=== PATIENT | female | born 1965 | race Caucasian/White ===

== ENCOUNTER 2017-12-26 09:00 | Outpatient (CLI) | payer OTHER, SELFPAY ==
[2017-12-26 18:10] LABS: Hemoglobin A1C 7.5 % (4.5-6.2)
== END 2017-12-26 09:01 ==
PROVIDERS: PCP Family Medicine; Visit Provider Family Medicine
DX: E11.9 Type 2 diabetes mellitus without complications (principal)
CPT/HCPCS: 83036

== ENCOUNTER 2018-03-29 07:01 | Outpatient (CLI) | payer OTHER, SELFPAY ==
[2018-03-29 08:03] LABS: ALT 32 U/L (12-78); AST 16 U/L (15-37); Albumin 3.6 g/dL (3.4-5.0); Alkaline Phosphatase 90 U/L (46-116); Anion Gap 10.7 mmol/L (3-11); BUN 14 mg/dL (7-18); Bilirubin, Total 0.4 mg/dL (0.2-1.0); CO2 27.3 mmol/L (21.0-32.0); CREATININE 0.71 mg/dL (0.55-1.02); Calcium 9.3 mg/dL (8.5-10.1); Chloride 101 mmol/L (98-107); Glucose 169 mg/dL (70-100); Potassium 4.5 mmol/L (3.5-5.1); Sodium 139 mmol/L (136-145); Total Protein 7.2 g/dL (6.4-8.2)
== END 2018-03-29 07:21 ==
PROVIDERS: PCP Family Medicine; Visit Provider Family Medicine
DX: E11.9 Type 2 diabetes mellitus without complications (principal); I10 Essential (primary) hypertension
CPT/HCPCS: 36415; 80053; 83036

== ENCOUNTER 2018-07-21 06:21 | Outpatient (CLI) | payer OTHER, SELFPAY ==
--- NOTE | 2018-07-21 07:30 | DI.MAMMO_ITS ---
SYMPTOM/DIAGNOSIS: SCREENING, Z12.31 MAMMOGRAMS: Mammograms were interpreted according to the usual protocol including computer analysis with CAD system, tomosynthesis and C view imaging. Comparison is made with exams from [id number]. The breasts are composed of fatty density tissue. Breast density, Category A. No suspicious masses or suspicious microcalcifications are seen. There has been no significant change. IMPRESSION: Category 1, negative mammogram. Yearly screening mammography is recommended. [facility] ASSESSMENT OF FINDINGS: Negative. Category 1. Patient will receive a letter notifying them of these results. BI-RAD category A. The breasts are almost entirely fatty.
== END 2018-07-21 06:41 ==
PROVIDERS: PCP Family Medicine; Visit Provider Family Medicine
CPT/HCPCS: 77063; 77067

== ENCOUNTER 2018-08-11 08:06 | Outpatient (CLI) | payer OTHER, SELFPAY ==
[2018-08-11 09:05] LABS: Hemoglobin A1C 7.3 % (4.5-6.2)
[2018-08-11 09:37] LABS: Cholesterol 125 mg/dL (50-200); HDL Cholesterol 43 mg/dL (40-60); LDL CHOLESTEROL 61 mg/dL (<100); Triglyceride 118 mg/dL (30-150)
[2018-08-11 09:51] LABS: COMMENT (LAB VIEW ONLY) 82.83 mg/dL; Microalb ug/mg Crea 21.9 ug/mg Cr
== END 2018-08-11 08:26 ==
PROVIDERS: PCP Family Medicine; Visit Provider Family Medicine
DX: E11.9 Type 2 diabetes mellitus without complications (principal)
CPT/HCPCS: 36415; 80061; 83721; 82043; 82570; 83036

== ENCOUNTER 2018-12-21 01:24 | Outpatient (CLI) | payer OTHER, SELFPAY ==
[2018-12-21 08:23] LABS: Anion Gap 12.6 mmol/L (3-11); BUN 18 mg/dL (7-18); CO2 25.4 mmol/L (21.0-32.0); CREATININE 0.76 mg/dL (0.55-1.02); Calcium 9.1 mg/dL (8.5-10.1); Chloride 101 mmol/L (98-107); Glucose 138 mg/dL (70-100); Potassium 4.7 mmol/L (3.5-5.1); Sodium 139 mmol/L (136-145)
== END 2018-12-21 01:44 ==
PROVIDERS: PCP Family Medicine; Visit Provider Family Medicine
DX: E11.9 Type 2 diabetes mellitus without complications (principal)
CPT/HCPCS: 36415; 80048

== ENCOUNTER 2019-04-01 11:27 | Outpatient (CLI) | payer OTHER, SELFPAY ==
[2019-04-01 12:29] LABS: Hemoglobin A1C 7.7 % (4.5-6.2)
== END 2019-04-01 11:47 ==
PROVIDERS: PCP Family Medicine; Visit Provider Family Medicine
DX: E11.9 Type 2 diabetes mellitus without complications (principal)
CPT/HCPCS: 36415; 83036

== ENCOUNTER 2019-10-18 00:40 | Outpatient (CLI) | payer OTHER, SELFPAY ==
--- NOTE | 2019-10-18 | DI.MAMMO_ITS ---
EXAM: MG MAMMO SCREENING CLINICAL HISTORY: SCREENING, Z12.39 TECHNIQUE: Mammograms were interpreted according to the usual protocol including computer analysis w [employer] CAD system, tomosynthesis and C-view imaging. COMPARISON: FINDINGS: The breasts are of moderate density with fairly symmetrical distribution of fibroglandular tissue. N o dominant mass or clumped microcalcification is identified in either breast. The current examinatio n is compared with prior studies including June 2018 and there has been no gross interval change in appearance in comparison with the prior studies. IMPRESSION: No specific evidence of malignancy at this time. Routine screening examinations are suggested at yea rly intervals due to the family history of breast carcinoma. Category: BI-RADS Cat 1 - Negative Breast Density - Category B - Scattered areas of fibroglandular density:
== END 2019-10-18 01:00 ==
PROVIDERS: PCP Family Medicine; Visit Provider Obstetrics & Gynecology
DX: Z12.31 Encounter for screening mammogram for malignant neoplasm of breast (principal); Z80.3 Family history of malignant neoplasm of breast
CPT/HCPCS: 77063; 77067

== ENCOUNTER 2019-10-24 12:22 | Outpatient (REF) | payer OTHER, SELFPAY ==
[2019-10-24 14:03] LABS: ALT 32 U/L (14-59); AST 27 U/L (15-37); Albumin 3.8 g/dL (3.4-5.0); Alkaline Phosphatase 82 U/L (46-116); BUN 14 mg/dL (7-18); Bilirubin, Total 0.4 mg/dL (0.2-1.0); CREATININE 0.79 mg/dL (0.55-1.02); Calcium 9.5 mg/dL (8.5-10.1); Calculated LDL 77 mg/dL (<100); Chloride 102 mmol/L (98-107); Cholesterol 161 mg/dL (<200); Glucose 143 mg/dL (74-106); HDL Cholesterol 62 mg/dL (40-60); Potassium 4.5 mmol/L (3.5-5.1); Sodium 139 mmol/L (136-145); Total Protein 7.1 g/dL (6.4-8.2); Triglyceride 114 mg/dL (<150)
[2019-10-24 21:37] LABS: COMMENT (LAB VIEW ONLY) 160.31 mg/dL; Microalb ug/mg Crea 33.5 ug/mg Cr
== END 2019-10-24 12:42 ==
LOC: LBN 12:22
PROVIDERS: PCP Family Medicine; Visit Provider Family Medicine
DX: E11.9 Type 2 diabetes mellitus without complications (principal)
CPT/HCPCS: 80053; 80061; 82043; 82570; 83036

== ENCOUNTER 2020-02-27 16:12 | Outpatient (REF) | payer SELFPAY ==
--- NOTE | 2020-02-27 16:25 | DI.RAD_ITS ---
EXAM: XR WRIST RT COMPLETE CLINICAL HISTORY: ACUTE RT WRIST PAIN S/P CPR ON MANIKIN, PAIN AND SWELLING. TECHNIQUE: 2D digital imaging was performed. COMPARISON: No exams were available for comparison FINDINGS: BONES: No acute fracture is present. No bony destructive lesion is seen. JOINTS: The carpal bones are normally aligned. SOFT TISSUE: Dystrophic calcification is seen posterior to the carpus. IMPRESSION: No acute fracture or dislocation. DATA REPOSITORY: RADIATION DOSE DELIVERED:
== END 2020-02-27 16:32 ==
LOC: DI 16:12
PROVIDERS: PCP Family Medicine; Visit Provider Nurse Practitioner Family
DX: M25.531 Pain in right wrist (principal)
CPT/HCPCS: 73110

== ENCOUNTER 2020-02-29 09:48 | Outpatient (CLI) | payer OTHER, SELFPAY ==
[2020-02-29 11:51] LABS: Abs Immature Grans 0.03 10^3/uL (0.0-0.06); Absolute Basophil Count 0.03 10^3/uL (0.0-0.2); Absolute Eosinophil Count 0.09 10^3/uL (0.0-0.7); Absolute Lymphocyte Count 1.64 10^3/uL (1.2-3.4); Absolute Monocyte Count 0.57 10^3/uL (0.1-0.8); Absolute Neutrophil Count 6.54 10^3/uL (1.2-6.7); Basophils % 0.3; HCT 39.5 % (36.0-46.0); HGB 12.6 g/dL (11.2-15.7); Immature Grans % 0.3; Lymphocytes % 18.4; MCH 28.9 pg (27.0-33.0); MCHC 31.9 % (32.0-36.0); MCV 90.6 fL (80-95); MPV 10.2 fL (8.0-11.0); Monocytes % 6.4; Neutrophils % 73.6; Nucleated RBC 0 %; Platelet Count 286 10^3/uL (130-400); RBC 4.36 10^6/uL (3.93-5.22); RDW 13.7 % (11.7-14.6); RDW-SD 45.5 fL
[2020-02-29 11:59] LABS: C-Reactive Protein 3.49 mg/dL (0.0-0.3); Uric Acid 3.8 mg/dL (2.6-6.0)
[2020-02-29 12:27] LABS: ESR 37 mm/hr (0-30)
== END 2020-02-29 10:08 ==
PROVIDERS: PCP Family Medicine; Visit Provider Nurse Practitioner Family
DX: M25.531 Pain in right wrist (principal); L53.9 Erythematous condition, unspecified
CPT/HCPCS: 36415; 85652; 84550; 85025; 86140

== ENCOUNTER 2020-10-23 02:07 | Outpatient (CLI) | payer OTHER, SELFPAY ==
--- NOTE | 2020-10-23 | DI.MAMMO_ITS ---
Exam(s) MAMMO SCREENING EXAM: MAMMO SCREENING CLINICAL HISTORY: SCREENING, Z12.31 TECHNIQUE: Mammograms were interpreted according to the usual protocol including computer analysis w [employer] CAD system, tomosynthesis and C-view imaging. COMPARISON: FINDINGS: The breasts are of moderate density with fairly symmetrical distribution of fibroglandular tissue. N o dominant mass or suspicious clumped microcalcification is identified in either breast. The current examination is compared with previous examinations including September 2019 and there has been no gross i nterval change in appearance in comparison with the prior studies. IMPRESSION: No specific evidence of malignancy at this time. Routine screening examinations are suggested at yea rly intervals due to the family history of breast carcinoma. BI-RADS Category 1 - Negative Breast Density - Category B - Scattered areas of fibroglandular density
== END 2020-10-23 02:27 ==
PROVIDERS: PCP Family Medicine; Visit Provider Obstetrics & Gynecology
DX: Z12.31 Encounter for screening mammogram for malignant neoplasm of breast (principal); R92.8 Other abnormal and inconclusive findings on diagnostic imaging of breast; Z80.3 Family history of malignant neoplasm of breast
CPT/HCPCS: 77063; 77067

== ENCOUNTER 2020-10-30 16:52 | Outpatient (REF) | payer OTHER, SELFPAY ==
[2020-10-30 14:23] LABS: Bilirubin Negative (Negative); Blood Negative (Negative); Clarity Clear (Clear); Glucose Negative (Negative); Ketones Negative (Negative); Leukocyte Esterase Negative (Negative); Nitrite Negative (Negative); Urobilinogen 0.2 EU/dL (Up TO 0.2); pH 5.5 (5-8)
== END 2020-10-30 16:53 | disposition home or self-care (01) ==
LOC: NCHCN 16:52
PROVIDERS: PCP Family Medicine; Visit Provider Family Medicine
DX: R30.0 Dysuria (principal)
CPT/HCPCS: 81003

== ENCOUNTER 2021-01-09 02:56 | Outpatient (CLI) | payer OTHER, SELFPAY ==
[2021-01-09 07:40] LABS: Hemoglobin A1C 6.3 % (<5.7)
[2021-01-09 08:10] LABS: ALT 25 U/L (14-59); AST 12 U/L (15-37); Albumin 3.9 g/dL (3.4-5.0); Alkaline Phosphatase 75 U/L (46-116); Anion Gap 8.9 mmol/L (3-11); BUN 19 mg/dL (7-18); Bilirubin, Total 0.4 mg/dL (0.2-1.0); CO2 30.1 mmol/L (21.0-32.0); CREATININE 1.1 mg/dL (0.55-1.02); Calcium 9.4 mg/dL (8.5-10.1); Chloride 101 mmol/L (98-107); Estimated GFR 51.57 (mL/min/1.73m2); Glucose 128 mg/dL (74-106); Potassium 4.5 mmol/L (3.5-5.1); Sodium 140 mmol/L (136-145); Total Protein 7.3 g/dL (6.4-8.2)
[2021-01-09 11:32] LABS: COMMENT (LAB VIEW ONLY) 64.54 mg/dL; Microalb ug/mg Crea 11.8 ug/mg Cr
== END 2021-01-09 02:57 | disposition home or self-care (01) ==
LOC: LBO 02:56
PROVIDERS: PCP Family Medicine; Visit Provider Family Medicine
DX: E11.9 Type 2 diabetes mellitus without complications (principal)
CPT/HCPCS: 36415; 80053; 82043; 82570; 83036

== ENCOUNTER → 2021-11-06 02:13 | Outpatient (CLI) | payer OTHER, SELFPAY ==
--- NOTE | 2021-11-06 07:53 | DI.MAMMO_ITS ---
Exam(s) MAMMO SCREENING EXAM: MAMMO SCREENING CLINICAL HISTORY: SCREENING, Z12.31. TECHNIQUE: Bilateral full field digital CC and MLO mammographic images were obtained with 3D tomosyn thesis and utilizing computer aided detection (CAD). COMPARISON: Prior mammograms were reviewed, the most recent being September 2020. FINDINGS: There are no new spiculated masses nor malignant appearing microcalcification groups. There is no significant architectural distortion nor skin thickening-retraction. IMPRESSION: No radiographic evidence of malignancy. BI-RADS Category 1 - Negative Breast Density - Category B - Scattered areas of fibroglandular density Breast density Category C or D implies that the patient has dense breast tissue. Dense breast tissue can make it harder to find cancer on a mammogram. Dense breast tissue is also associated with an incr eased risk of breast cancer. This information about the result of the mammogram report was provided to the patient to raise their awareness. Use this report when you speak with the patient about their risks for breast cancer, which includes their family history. At that time, you may recommend additional screening tests (Ultrasoun d or MRI) as these tests may add significant information. A negative radiographic report should not delay biopsy if a dominant or clinically suspicious mass is present. Up to ten percent of cancers are not identified on mammography. A negative report may reinforce clinical impression. Adenosis and dense breasts may obscure an underlying neoplasm. False positive reports average 6 to 10%. Patient will receive a letter notifying them of these results.
== END ==
PROVIDERS: PCP Family Medicine; Visit Provider Obstetrics & Gynecology
DX: Z12.31 Encounter for screening mammogram for malignant neoplasm of breast (principal); R92.8 Other abnormal and inconclusive findings on diagnostic imaging of breast
CPT/HCPCS: 77063; 77067

== ENCOUNTER 2022-03-03 13:34 | Outpatient (CLI) | payer OTHER, SELFPAY ==
[2022-03-03 07:44] LABS: Hemoglobin A1C 6.6 % (<5.7)
[2022-03-03 07:48] LABS: BUN 15 mg/dL (7-18); CREATININE 0.9 mg/dL (0.55-1.02); Calcium 9.2 mg/dL (8.5-10.1); Calculated LDL 76 mg/dL (<100); Chloride 102 mmol/L (98-107); Cholesterol 167 mg/dL (<200); Estimated GFR 75.03 (mL/min/1.73m2); Glucose 114 mg/dL (74-106); HDL Cholesterol 71 mg/dL (40-60); Potassium 3.8 mmol/L (3.5-5.1); Sodium 138 mmol/L (136-145); Triglyceride 103 mg/dL (<150)
[2022-03-03 08:14] LABS: COMMENT (LAB VIEW ONLY) 178.48 mg/dL; Microalb ug/mg Crea 9.5 ug/mg Cr
== END 2022-03-03 13:35 | disposition home or self-care (01) ==
LOC: LBO 13:34
PROVIDERS: PCP Family Medicine; Visit Provider Family Medicine
DX: E11.9 Type 2 diabetes mellitus without complications (principal)
CPT/HCPCS: 36415; 80048; 80061; 82043; 82570; 83036

== ENCOUNTER 2022-11-05 02:56 | Outpatient (CLI) | payer OTHER, SELFPAY ==
[2022-11-05 07:31] LABS: Hemoglobin A1C 6.3 % (<5.7)
[2022-11-05 07:35] LABS: ALT 19 U/L (14-59); AST 13 U/L (15-37); Albumin 3.5 g/dL (3.4-5.0); Alkaline Phosphatase 79 U/L (46-116); Anion Gap 9.9 mmol/L (3-11); BUN 16 mg/dL (7-18); Bilirubin, Total 0.4 mg/dL (0.2-1.0); CO2 28.1 mmol/L (21.0-32.0); CREATININE 0.9 mg/dL (0.55-1.02); Calcium 9.2 mg/dL (8.5-10.1); Chloride 101 mmol/L (98-107); Estimated GFR 74.57 (mL/min/1.73m2); Glucose 131 mg/dL (74-106); Potassium 4.1 mmol/L (3.5-5.1); Sodium 139 mmol/L (136-145); Total Protein 7.2 g/dL (6.4-8.2)
== END 2022-11-05 02:57 | disposition home or self-care (01) ==
LOC: LBO 02:58
PROVIDERS: PCP Nurse Practitioner Family; Visit Provider Family Medicine
DX: E11.9 Type 2 diabetes mellitus without complications (principal); E66.01 Morbid (severe) obesity due to excess calories; Z68.43 Body mass index [BMI] 50.0-59.9, adult
CPT/HCPCS: 36415; 80053; 83036

== ENCOUNTER 2022-11-10 03:48 | Outpatient (CLI) | payer OTHER, SELFPAY ==
--- NOTE | 2022-11-10 | DI.MAMMO_ITS ---
Exam(s) MAMMO SCREENING EXAM: MAMMO SCREENING CLINICAL HISTORY: SCREENING MAMMO FOR BREAST CANCER Z12.31 ROUTINE EXAM Z01.419 TECHNIQUE: Mammograms were interpreted according to the usual protocol including computer analysis w ith CAD system, tomosynthesis and C-view imaging. COMPARISON: 2013 through 2021 FINDINGS: The breasts are composed of mainly fatty density , Breast Density category A. No suspicious masses or suspicious microcalcifications are seen. No skin thickening or abnormal axillary lymph nodes are seen. There has been no significant change from prior exams. IMPRESSION: BI-RADS Category 1, Negative mammogram Yearly screening mammography is recommended. Breast Density - Category A, fatty density. A negative radiographic report should not delay biopsy if a dominant or clinically suspicious mass is present. Up to ten percent of cancers are not identified on mammography. A negative report may reinforce clinical impression. Adenosis and dense breasts may obscure an underlying neoplasm. False positive reports average 6 to 10%. Patient will receive a letter notifying them of these results.
== END 2022-11-10 04:08 ==
LOC: DI 03:48
PROVIDERS: PCP Nurse Practitioner Family; Visit Provider Obstetrics & Gynecology
DX: Z12.31 Encounter for screening mammogram for malignant neoplasm of breast (principal)
CPT/HCPCS: 77063; 77067

== ENCOUNTER 2023-09-02 05:09 | Outpatient (CLI) | payer OTHER, SELFPAY ==
[2023-09-02 08:07] LABS: Calculated LDL 73 mg/dL (<100); Cholesterol 179 mg/dL (<200); HDL Cholesterol 75 mg/dL (40-60); Potassium 3.9 mmol/L (3.5-5.1); Triglyceride 158 mg/dL (<150)
== END 2023-09-02 05:10 | disposition home or self-care (01) ==
LOC: LBO 05:09
PROVIDERS: PCP Nurse Practitioner Family; Visit Provider Nurse Practitioner Family
DX: E78.5 Hyperlipidemia, unspecified (principal); I10 Essential (primary) hypertension
CPT/HCPCS: 36415; 80061; 82565; 84132

== ENCOUNTER 2023-11-23 08:42 | Day surgery (SDC) | payer OTHER, SELFPAY ==
--- NOTE | 2023-11-22 13:33 | PDOC.DSDIS_ITS ---
Date of service: 11/23/23 Time of Service: 11:33 Discharge Plan Disposition Patient Disposition: Home Condition: Good Discharge Details Reason For Visit: screening colonoscopy Attending Provider: Dakota Mcconnell Primary Care Provider: Krish Brown Home Meds and New Rx's Prescriptions: Continued aspirin [Adult Aspirin Regimen] 81 mg tablet,delayed release (DR/EC) 81 mg PO DAILY magnesium oxide 400 mg capsule 400 mg PO HS ibuprofen 600 mg tablet 600 mg PO TID PRN (Reason: fever or pain) Qty: 90 3RF lisinopril 40 mg tablet 40 mg PO DAILY Qty: 90 4RF rosuvastatin 10 mg tablet 10 mg PO DAILY Qty: 90 3RF hydrochlorothiazide 12.5 mg tablet 12.5 mg PO DAILY Qty: 90 3RF metformin 1,000 mg tablet 1,000 mg PO BID Qty: 180 3RF semaglutide 14 mg tablet 14 mg PO DAILY Qty: 90 4RF Discharge Instructions Instructions: Colon polyps Additional Instructions: Tabitha, we are able to complete your colonoscopy today without any difficulty. I did find and removed 1 polyp today. Similar to your previous colonoscopies, I will send this off for testing, but we know the nature of this polyp, that information will be used to guide the timing of your next colonoscopy. Incidentally, he have just a tiny amount of diverticulosis. He is a little weak spots in the wall of the colon that typically accumulate as we get older. They can get infected and inflamed, and during those episodes, we typically refer to it as diverticulitis. It is often times experienced as sharp pain, usually on the left side of the abdomen. Many times it is treated with antibiotics. I hope you are is never bother you. My general recommendation for diverticulosis is to maintain a diet that is rich in fiber, avoid constipation, and stay well- hydrated throughout the course of the day. As I mentioned above, soon as we have the results on the polyp report, we will be in touch with recommendations for your next colonoscopy. If you have any questions, or need anything in the meantime, please let me know. 1. If tolerated, consume a soft, low fiber diet for 1-2 days. 2. Do not drive, drink alcohol, operate machinery, make critical decisions, or do activities that require coordination or balance for 24 hours. 3. Because air was put into your colon during the procedure, expelling air from your rectum (passing gas or farting) is normal. 4. You may not have a bowel movement for 1-3 days because of the colonoscopy prep. This is normal. 5. Go directly to the emergency room if you notice any of the following: Develop chills (warm to touch), or if you have a thermometer and your temperature is above 101 Difficulty breathing or difficultly swallowing Persistent vomiting Severe abdominal pain, other than gas cramps Severe chest pain Black, tarry stools Any bleeding ? exceeding one tablespoon 6. Call your physician if the site where your intravenous was started becomes red, swollen, painful, and warm to touch. 7. Your physician has reviewed your pre-procedure medications. Please continue to take those medications as previously ordered. You will be given specific information/education regarding any changes to your medications before leaving. Stand Alone Forms: Anesthesia Discharge InstElva Jimenes (DSU) Activity:: Activity as Tolerated Diet:: As Tolerated Discharge Orders Discharge Orders: Discharge Order (Routine); Ordered 11/22/23 Ordered By: Dakota Mcconnell DS: Diagnosis Discharge Diagnosis (1) Encounter for screening colonoscopy: Status: Acute Asessment and Plan: Follow-up on polypectomy results
--- NOTE | 2023-11-22 13:35 | COLE_ITS ---
Date of service: 11/23/23 Time of Service: 11:34 Colonoscopy Report Date of procedure: 11/23/23 Pre-op diagnosis general: screening colonoscopy Post-op diagnosis procedure note: other (Hemorrhoids, diverticulosis, colon polyp) Procedure: colonoscopy with polypectomy Surgeon: Dakota Mcconnell Anesthesia Type: General:No Airway Estimated blood loss (mL): 5 Pathology: other (0.25 cm flat polyp at 35 cm from the anus) Complications: None Disposition: same day Indications: Tabitha is a 58 year old woman with a history of adenomatous poylps who needs her next screening colonoscopy Prep: Miralax/Dulcolax Procedure Start Time: 11:09 Procedure End Time: 11:24 Retraction Time: 9 Findings: Hemorrhoids, diverticulosis, 0.25 cm flat polyp at 35 cm from the anus Procedure Description: After the induction of anesthesia, and with the patient in left lateral decubitus position, I began by performing an external anorectal exam.? There are some external hemorrhoids.?Next, I performed a digital rectal exam.? I did not appreciate any abnormal findings.? Next, I advanced a colonoscope into the rectal vault.? I performed retroflexion.? Again, some internal hemorrhoids are noted.? Using insufflation, I then advanced the colonoscope beyond the rectal folds and into the sigmoid colon before advancing towards the cecum.? There was a little bit of diverticulosis in the sigmoid colon. The scope was noted to be in the cecum by identification of the ileocecal valve and appendiceal orifice.? I then began withdrawing the colonoscope using repeated irrigation as necessary for full evaluation of the colonic mucosa. Around 35 cm from the anal verge I identified a 0.25 cm polyp. ?It appeared flat in character. ?I was able to remove this with a cold forcep polypectomy. ?I examined the site, and there was minimal bleeding. ?Once this was completed, I continued to withdraw the scope and examine the remainder of the colonic mucosa.?Once the scope was withdrawn to the level of the rectum, great care was taken to examine portions of the rectal folds.? Finally, the scope was withdrawn and the patient was brought to the same-day surgery recovery unit as the anesthetic wore off. ?The findings and instructions were shared with the patient prior to discharge. Sharps Bowel Prep Sharps Bowel Prep Right Colon: 3 Left Colon: 3 Transverse Colon: 3 Total Score: 9
[2023-11-23 09:30] VITALS: BP 146/86; PULSE 78; RESP 16; TEMP 36.2; O2SAT 98
[2023-11-23] MEDS: Lactated Ringers 1,000 ML 80 ML IV (09:50)
--- NOTE | 2023-11-23 10:41 | ANES.PREOP_ITS ---
General Info Date of Service Date Performed: 11/23/23 Height: 4 ft 10 in Weight: 112.1 kg Body Mass Index (BMI): 51.6 Surgical Procedure: Operation Date: 11/23/23 10:35 Proposed Procedure Side Surgeon lorin Mcconnell MD Meds Allergies and Home Medications Allergies Allergy/AdvReac Type Severity Reaction Status Date / Time hydrocodone AdvReac Intermediate NAUSEA AND Verified 11/23/23 09:25 VOMITING Home Medication ?Medication ?Instructions ?Recorded aspirin 81 mg tablet,delayed 81 mg PO DAILY 12/29/17 release (Adult Aspirin Regimen) magnesium oxide 400 mg PO HS 12/29/17 ibuprofen 600 mg tablet 600 mg PO TID PRN fever or pain 08/11/22 #90 tabs lisinopril 40 mg tablet 40 mg PO DAILY #90 tabs 01/05/23 rosuvastatin 10 mg tablet 10 mg PO DAILY #90 tabs 03/06/23 hydrochlorothiazide 12.5 mg tablet 12.5 mg PO DAILY #90 tabs 04/06/23 metformin 1,000 mg tablet 1,000 mg PO BID #180 tabs 06/08/23 semaglutide 14 mg tablet 14 mg PO DAILY #90 tabs 07/15/23 Current Visit Medications: Current Medications Generic Name Dose Route Start Last Admin Trade Name Freq PRN Reason Stop Dose Admin Ringer's Solution 1,000 mls @ 80 mls/hr 11/23/23 06:00 11/23/23 09:50 IV 11/23/23 23:59 80 mls/hr INFUSION ROZINA Administration IV Miscellaneous Supplies 1 each 11/23/23 06:00 Iv Access IV 11/23/23 23:59 DIRECTED ROZINA Ondansetron HCl 4 mg 11/22/23 13:36 Ondansetron 4 Mg/2 Ml Vial IVP 12/22/23 13:35 Q4H PRN PRN Nausea / Vomiting Sodium Chloride 0 ml 11/23/23 06:00 Normal Saline Flush 10 Ml Syr IV 11/23/23 23:59 PRN PRN Sodium Chloride 0 ml 11/23/23 06:00 Normal Saline 10 Ml Vial IJ 11/23/23 23:59 DIRECTED PRN Sterile Water 0 ml 11/23/23 06:00 Water,Injection,Sterile 10 Ml Vial IJ 11/23/23 23:59 DIRECTED PRN PFSH Active Problems Active Problems: Problem Status Onset Code Encounter for screening colonoscopy Acute Z12.11 Radial styloid tenosynovitis of right hand Acute M65.4 De Quervain's disease (tenosynovitis) Acute M65.4 Morbid obesity with BMI of 50.0-59.9, adult Acute E66.01, Z68.43 Migraine with aura Chronic 11/01/14 G43.109 Hyperlipidemia Acute 09/29/12 E78.5 Glaucoma suspect Acute 11/08/14 H40.009 Essential hypertension Chronic 03/16/13 I10 Diabetes type 2, controlled Chronic E11.9 Medical History Medical History Mild mitral regurgitation Last ECHO Gestational diabetes mellitus Tubular adenoma of colon (12/12/17) colonoscopy 12-07-17 Osteoarthritis of knee (07/04/14) Hx of malignant neoplasm of uterine body (2012) Medical History Comments:: for all surgeries except for last colonoscopy Surgical History Surgical History Hx of arthroscopy of left knee Hx of dilation and curettage Hx of colonoscopy S/P total hysterectomy and BSO (bilateral salpingo-oophorectomy) (2012) Status post tonsillectomy Tobacco Smoking/Tobacco Use Status: Never Passive smoking exposure: Yes Second hand exposure: Yes Alcohol Alcohol Intake: current Alcohol intake frequency: holidays/special occasions only Alcohol type: wine Substance Use Substance use: Never Substance use type: does not use Vital Signs and Lab Results Vital Signs Most Recent Vital Signs in EMR: Most Recent Vital Signs Temp Pulse Resp BP Pulse Ox 36.2 C L 78 16 146/86 H 98 11/23/23 09:30 11/23/23 09:30 11/23/23 09:30 11/23/23 09:30 11/23/23 09:30 Point of Care Results Point of Care Results: Finger Stick Blood Glucose 119 11/23/23 09:50 Lab Results Blood Type / Crossmatch: No Data to Display Complete Blood Count: No Data to Display Complete Metabolic Panel: No Data to Display Liver Function Panel: No Data to Display Coagulation Panel: No Data to Display Cardiac Panel: No Data to Display Arterial Blood Gas: No Data to Display Venous Blood Gas: No Data to Display Pancreas Panel: No Data to Display Thyroid Panel: No Data to Display Infectious Disease: No Data to Display Blood Cultures: No Data to Display Toxicology Panel: No Data to Display Imaging and Studies Imaging and Studies Study information below may be from another EMR and interpreted by another provider. Please see original notes in EMR for more complete details. Echocardiogram Summary: Patient Name: MOISÉS CRUZ Unit #: [id number] Loc: DI Ordering Provider: MATTHEW RG M.D. Status: REG CLI Primary Care Provider: MATTHEW RG M.D. Date of Exam: 10/12/14 Sex: F : 1965 Age: 49 Exam(s) [id number] US:Echocardiogram Heart *[facility]* *[facility]* [address] [place] [address] Date of study: 10/12/2014 *STUDY CONCLUSIONS* Summary: 1. Left ventricle: The cavity size was normal. Wall thickness was normal. Systolic function was hyperdynamic. The estimated ejection fraction was 65-70%. Wall motion was normal; there were no regional wall motion abnormalities. 2. Mitral valve: Mild regurgitation. 3. Right ventricle: Poorly visualized. 4. Pulmonary arteries: Pulmonary systolic pressure was >= 15mm Hg. 5. Inferior vena cava: Poorly visualized. *PATIENT PRESENTATION* Height: 147.3cm (58in ) S/D Pressure: 142 / 90 Weight: 123.9kg (272.6lb ) BSA: 2.35m^2 Test start time: 03:10 PM. Test stop time: 04:30 PM. ORDERING Arya Valdez MD REFERRING Matthew Rg [employer] [place] PERFORMING [place] *PROCEDURE DATA* Procedure information: [facility] INFO:[id number] This study was interpreted by [facility]. Pertinent images and digital data are archived for permanent storage and are available for subsequent review. No prior study was available for comparison. Study status: Routine. Transthoracic echocardiography. M-mode, complete 2D, complete spectral Doppler, and color Doppler. A Transthoracic Echocardiogram was performed. Scanning was performed from the parasternal, apical, subcostal, and suprasternal notch acoustic windows. Image quality was fair. Study completion: The patient tolerated the procedure well. *INDICATIONS AND HISTORY* Indications: Episodes of amaurose fugax 3x in 6 weeks 362.34. *CARDIAC ANATOMY* Left ventricle: The cavity size was normal. Wall thickness was normal. Systolic function was hyperdynamic. The estimated ejection fraction was 65-70%. Wall motion was normal; there were no regional wall motion abnormalities. Aortic valve: Trileaflet; normal thickness leaflets. Mobility was not restricted. Doppler: Transvalvular velocity was within the normal range. There was no stenosis. No regurgitation. VTI ratio of LVOT to aortic valve: 0.93. Valve area: 3.3cm^2(VTI). Indexed valve area: 1.4cm^2/m^2 (VTI). Peak velocity ratio of LVOT to aortic valve: 0.87. Valve area: 3cm^2 (Vmax). Indexed valve area: 1.3cm^2/m^2 (Vmax). Mean gradient: 3.8mm Hg (S). Peak gradient: 6.7mm Hg (S). Aorta: Aortic root: The aortic root was normal in size. Ascending aorta: The ascending aorta was normal in size. Mitral valve: Structurally normal valve. Mobility was not restricted. Doppler: Transvalvular velocity was within the normal range. There was no evidence for stenosis. Mild regurgitation. Valve area by pressure half-time: 2.7cm^2. Indexed valve area by pressure half-time: 1.1cm^2/m^2. Peak gradient: 3.3mm Hg (D). Left atrium: Well visualized. The atrium was normal in size. Atrial septum: Poorly visualized. Right ventricle: Poorly visualized. Pulmonic valve: Doppler: Transvalvular velocity was within the normal range. There was no evidence for stenosis. Mild regurgitation. Peak gradient: 3.2mm Hg (S). Tricuspid valve: Structurally normal valve. Doppler: Transvalvular velocity was within the normal range. There was no evidence for stenosis. Trivial regurgitation. Peak gradient: 17.5mm Hg (D). Pulmonary artery: Poorly visualized. Pulmonary systolic pressure was >= 15mm Hg. Right atrium: Well visualized. The atrium was normal in size. Pericardium: Not well visualized. Systemic veins: Inferior vena cava: Poorly visualized. Baseline ECG: Normal sinus rhythm. *MEASUREMENT TABLES* 2D measurements Normal Left ventricle LV internal dimension, ED, chordal level, PLAX *38.6 mm 43- 52 LV internal dimension, ES, chordal level, PLAX *22 mm 23- 38 Fractional shortening, chordal level, PLAX 43 % >29 LV posterior wall thickness, ED 9 mm ----- IVS/LVPW ratio, ED 1.1 <1.3 Ejection fraction 74.81 % ----- Stroke volume 48.1 ml ----- Stroke index 20.5 ml/m^2 ----- Volume, ED, MOD, 1-plane 74.8 ml ----- Ejection fraction, MOD, 1-plane 65 % ----- Volume index, ED, MOD, 1-plane 32 ml/m^2 ----- Ventricular septum Septal thickness, ED 10 mm ----- Aorta Root diameter, ED 27 mm ----- Left atrium Area ES, A4C 18.2 cm^2 8.8 Volume index, S 27.2 ml/m^2 ----- Right atrium Area, ES 15.2 cm^2 --- M-mode measurements Normal Aorta Root diameter, ED 29.5 mm 20-37 Doppler measurements Normal Main pulmonary artery Pressure, ED 14 mm Hg ----- Left ventricle IVRT 67 ms 60-10 Ea, medial annulus, tissue Doppler 10 cm/s ----- E/Ea, medial annulus, tissue Doppler 9.1 ----- LVOT Peak velocity, S 112 cm/s ----- VTI, S 25.1 cm ----- Peak gradient, S 5 mm Hg ----- Mean gradient, S 2.3 mm Hg ----- Aortic valve Peak velocity, S 129 cm/s ----- Mean velocity, S 92 cm/s ----- VTI, S 27 cm ----- Mean gradient, S 3.8 mm Hg ----- Peak gradient, S 6.7 mm Hg ----- VTI ratio, LVOT/AV 0.9 Carotid Artery Summary:: Patient Name: MOISÉS CRUZ Unit #: [id number] Loc: DI Ordering Provider: VIANNEY ARREGUIN M.D. Status: REG CLI Primary Care Provider: MATTHEW RG M.D. Date of Exam: 10/03/14 Sex: F : 1965 Age: 49 Exam(s) [id number] US:Carotid SYMPTOM/DIAGNOSIS: VISION CHANGES, 368.9, DIABETES CAROTID ULTRASOUND: No significant intimal thickening or plaque formation is noted in the carotids. There is antegrade flow in the vertebrals. There is no evidence of carotid stenosis. CC: optical expressions Dictated By: FUAD BLACKWOOD M.D. 10/03/14 0945 <Electronically signed by FUAD BLACKWOOD M.D.> 10/04/14 0825 Transcribed By: Vianney Guerrero 10/03/14 0953 This is privileged, confidential information intended only for the provider named. Any use or distribution by any person other than this provider is strictly prohibited. If you receive this report in error, please notify us immediately at [phone] and return the original report to us at the address above. Thank-you. Anesthesia Assessment and Plan Anesthesia History Personal History: PONV Family History: No Family History of Anesthesia Complications Exercise Tolerance Exercise Tolerance: Metabolic Equivalents>4 Pertinent Negatives Pertinent Negatives: No Symptoms of GERD Cardiac & Pulmonary Exam Cardiac Exam: Normal S1/S2 Heart Sounds Pulmonary Exam: Clear Bilateral Breath Sounds Implantable Cardiac Device Does patient have a Pacemaker or an ICD?: No Airway Exam Known Difficult Airway: No Mallampati Class: 2 Mouth Opening: Normal (> 3cm) Thyromental Distance: Greater than 3 cm Neck Range of Motion: Full ROM Neck Circumference: Normal Teeth Condition: Normal Dentition ASA Classification ASA Score: ASA 3 Emergency Case?: No NPO Status NPO Status: NPO Clears >2 hours, Solids >8 hours Anesthesia Plan Resuscitation Status: Full Code Anesthesia Technique: General Anesthesia Airway Planned: Natural Airway Monitors Used: Standard Monitors
[2023-11-23 10:42] VITALS: BMI 51.6
--- NOTE | 2023-11-23 11:22 | BOWEL_PTH ---
PATIENT: Tabitha Hall LOC: [facility] U#:[id number] AGE/SX: 58/F ROOM: RE11/23/[address]: Dakota Mcconnell MD : 1965 BED: DIS: 11/23/2023 SPEC #: [id number] RECD: 11/23/23 13:17 STATUS: MARIO REQ #: [id number] GISELA: 11/23/23 11:[address]: Dakota Mcconnell DEPT: Surgical Specimen RECD BY: Chaya Fragoso ENTERED: 11/23/23 13:18 SP TYPE: Bowel OTHR DR: Krish Brown, [employer] Tissues: 1 - BIOPSY BOWEL Procedures: GROSS AND MICRO LEVEL 4 Comments: [id number]
[2023-11-23 11:25] VITALS: BP 103/58; PULSE 82; RESP 16; TEMP 36.4; O2SAT 97
--- NOTE | 2023-11-23 11:40 | W.ANESPOSTOP ---
Postoperative Evaluation Date, Time and Location Date Performed: 11/23/23 Time Performed: 11:40 Patient Location: Day Surgery Unit Vital Signs Most Recent Imported Vital Signs: Most Recent Vital Signs Temp Pulse Resp BP Pulse Ox 36.4 C L 82 16 103/58 L 97 11/23/23 11:25 11/23/23 11:25 11/23/23 11:25 11/23/23 11:25 11/23/23 11:25 Pain Score Most Recent Pain Score: Most Recent Pain Score Pain Level 0 11/23/23 11:25 Assessment Mental Status: Awake (Alert & Oriented to Patient Baseline) Airway and Respiratory Function: Patent airway with normal (patient baseline) respiratory exam Cardiovascular Function: Hemodynamically Stable Hydration Status: Adequately Hydrated Nausea & Vomiting: No Nausea or Vomiting Pain: Pt. Denies Any Pain Peripheral Nerve Block: Patient did not receive a nerve block
[2023-11-23 11:55] VITALS: BP 103/58; PULSE 67; RESP 16; TEMP 36.4; O2SAT 97
== END 2023-11-23 12:20 | disposition home or self-care (01) ==
LOC: SUR 08:43
PROVIDERS: PCP Nurse Practitioner Family; Visit Provider Surgery
PROC: 0DJD8ZZ Inspection of Lower Intestinal Tract, Via Natural or Artificial Opening Endoscopic (ICD-10-PCS; CPT 45378; principal; 2023-11-23 10:30)
DX: Z12.11 Encounter for screening for malignant neoplasm of colon (principal); I10 Essential (primary) hypertension; K64.8 Other hemorrhoids; K57.30 Diverticulosis of large intestine without perforation or abscess without bleeding; D12.5 Benign neoplasm of sigmoid colon
CPT/HCPCS: 45380; 88305; J2704

== ENCOUNTER 2024-08-01 02:09 | Outpatient (CLI) | payer OTHER, SELFPAY ==
--- NOTE | 2024-08-01 07:54 | DI.MAMMO_ITS ---
Exam(s) MAMMO SCREENING EXAM: MAMMO SCREENING CLINICAL HISTORY: screening,Z12.39 TECHNIQUE: Mammograms were interpreted according to the usual protocol including computer analysis w [employer] CAD system, tomosynthesis and C-view imaging. COMPARISON: 2014 through 2022 FINDINGS: The breasts are composed of mainly fatty density , Breast Density category A. No suspicious masses or suspicious microcalcifications are seen. No skin thickening or abnormal axillary lymph nodes are seen. There has been no significant change from prior exams. IMPRESSION: BI-RADS Category 1, Negative mammogram Yearly screening mammography is recommended. Breast Density - Category A, fatty density. A negative radiographic report should not delay biopsy if a dominant or clinically suspicious mass is present. Up to ten percent of cancers are not identified on mammography. A negative report may reinforce clinical impression. Adenosis and dense breasts may obscure an underlying neoplasm. False positive reports average 6 to 10%. Patient will receive a letter notifying them of these results.
== END 2024-08-01 02:29 ==
LOC: DI 02:09
PROVIDERS: PCP Nurse Practitioner Family; Visit Provider Nurse Practitioner Family
DX: Z12.31 Encounter for screening mammogram for malignant neoplasm of breast (principal); R92.313 Mammographic fatty tissue density, bilateral breasts
CPT/HCPCS: 77063; 77067

== ENCOUNTER 2024-09-29 07:11 | Outpatient (CLI) | payer OTHER, SELFPAY ==
[2024-09-29 08:10] LABS: BUN 17 mg/dL (7-18); CREATININE 0.9 mg/dL (0.55-1.02); Calcium 9.3 mg/dL (8.5-10.1); Calculated LDL 61 mg/dL (<100); Chloride 101 mmol/L (98-107); Cholesterol 166 mg/dL (<200); Estimated GFR 73.64 (mL/min/1.73m2); Glucose 132 mg/dL (74-106); HDL Cholesterol 67 mg/dL (>or=50); Sodium 137 mmol/L (136-145); Triglyceride 190 mg/dL (<150)
== END 2024-09-29 07:12 | disposition home or self-care (01) ==
LOC: LBO 07:11
PROVIDERS: PCP Nurse Practitioner Family; Visit Provider Nurse Practitioner Family
DX: I10 Essential (primary) hypertension (principal); Z13.220 Encounter for screening for lipoid disorders
CPT/HCPCS: 36415; 80048; 80061